=== PATIENT | male | born 2005 | race Two or more races ===

== ENCOUNTER 2024-06-02 06:25 | Emergency (ER) | payer MEDICAID, SELFPAY ==
[2024-06-02 06:25] VITALS: BMI 17.8
[2024-06-02 06:32] VITALS: BP 113/74; PULSE 64; RESP 17; TEMP 36.6; O2SAT 98
--- NOTE | 2024-06-02 06:33 | XR_ITS ---
Examination: Shoulder,right, 3 views Technique: Shoulder AP internal rotation, AP external rotation, Y view shoulder, 3 views Exam date and time :0647 hrs. Indications: Onset right shoulder pain today Findings: Normal bone mineralization. No shoulder fracture or dislocation No calcific tendinitis Impression: Negative for osseous abnormality
--- NOTE | 2024-06-02 06:33 | XR_ITS ---
Examination: Ribs, right, with PA chest, 5 views Technique: Chest PA, RIBS AP, RPO, LPO, AP coned lower ribs 5 views Exam date and time: June 02, 2024 0652 hrs. Indications: Onset right rib pain today Findings: Normal heart size No pneumothorax Normal bone density Right and left ribs appear intact Impression: No pneumothorax pulmonary contusion or hemothorax Ribs appear intact
--- NOTE | 2024-06-02 08:05 | EDNOTE_ITS ---
ED General RME/HPI General Chief complaint: General Adult/Misc Complain Stated complaint: CHEST/ABD/SHOULDER PAIN X 1 DAY Time Seen by Provider: 06/02/24 06:28 Arrival date/time: 06/02/24 06:25 19-year-old male with no significant medical problems presents emergency department today complaints of right-sided rib pain and right-sided shoulder pain patient reports no abdominal pain nausea or vomiting patient reports no left-sided chest pain or shortness of breath Limitations: no limitations Related Data Previous Rx's ?Medication ?Instructions ?Recorded guaifenesin 100 mg/5 mL oral liquid 100 mg (5 mL) PO [id number] PRN cold 04/22/18 symptoms #118 mL ibuprofen 100 mg/5 mL oral 200 mg (10 mL) PO QID PRN pain 04/22/18 suspension #250 mL loratadine 5 mg/5 mL oral solution 5 mg (5 mL) PO QDAY #120 mL 04/22/18 cyclobenzaprine 10 mg tablet 10 mg PO TID PRN muscle spasm 10 06/02/24 days #30 tab-caps ibuprofen 600 mg tablet 600 mg PO Q6H #30 tabs 06/02/24 Allergies Allergy/AdvReac Type Severity Reaction Status Date / Time No Known Allergies Allergy Verified 06/02/24 06:27 Review of Systems Review of Systems Systems Reviewed: All systems reviewed, normal except as documented Constitutional Constitutional: Reports system reviewed and no additional complaints, except as documented, Denies fever(s) and Denies headache(s) Eyes Eyes: Reports system reviewed and no additional complaints, except as documented and Denies blurry vision ENT Ears, Nose, Mouth, and Throat: Reports system reviewed and no additional complaints, except as documented, Denies headache(s), Denies nasal congestion, Denies nasal discharge and Denies neck pain Cardiovascular Cardiovascular: Reports system reviewed and no additional complaints, except as documented, Denies chest pain, Denies dyspnea and Reports other (Rib pain) Respiratory Respiratory: Reports system reviewed and no additional complaints, except as documented, Denies chest congestion, Denies cough and Denies dyspnea Gastrointestinal Gastrointestinal: Reports system reviewed and no additional complaints, except as documented and Denies abdominal pain Musculoskeletal Musculoskeletal: Reports system reviewed and no additional complaints, except as documented, Reports arthralgias, Denies joint swelling and Denies neck pain Integumentary/Breasts Skin/Breast: Reports system reviewed and no additional complaints, except as documented and Denies rash Neurologic Neurologic: Reports system reviewed and no additional complaints, except as documented, Reports as per HPI and Denies headache(s) Past Medical History Past Medical History NEUROLOGIC: Negative Neurological Disorders CARDIAC: Negative Cardiac Disorders ED Exam General Limitations: Present no limitations General appearance: Present alert and in no apparent distress Head Head exam: Present atraumatic, normocephalic and normal inspection Eye Eye exam: Present normal appearance, PERRL and EOMI; Absent conjunctival injection ENT ENT exam: Present normal exam, normal oropharynx and mucous membranes moist Neck Neck exam: Present normal inspection, full ROM and trachea midline Chest Chest inspection: Present normal inspection and symmetric chest wall rise Respiratory Respiratory exam: Present normal lung sounds bilaterally; Absent respiratory distress Cardiovascular Cardiovascular exam: Present regular rate, normal rhythm and normal heart sounds Abdominal Exam Abdominal exam: Present soft and normal bowel sounds; Absent distention, tenderness, guarding, rebound or rigidity Extremities Exam Extremities exam: Present normal inspection and full ROM Back Exam Back exam: Present normal inspection and full ROM Neurological Exam Neurological exam: Present alert, oriented X3 and CN II-XII intact Psychiatric Psychiatric exam: Present normal affect and normal mood Skin Skin exam: Present warm, dry, intact and normal color Course Quality Measures none Orders Category Date Time Status XR ribs RT min 3V w [id number] Stat Exams 06/02/24 06:33 Completed XR shoulder RT min 2V Stat Exams 06/02/24 06:33 Completed Vital Signs Vital signs: Vital Signs Temperature 97.9 F 06/02/24 06:32 Pulse Rate 64 06/02/24 06:32 Respiratory Rate 17 06/02/24 06:32 Blood Pressure 113/74 06/02/24 06:32 Pulse Oximetry (%) 98 06/02/24 06:32 Oxygen Delivery Method Room Air 06/02/24 06:32 O2 saturation 98% room air within normal limits MDM Patient data External records reviewed:: None Clinical information provided by:: patient Social determinants that could affect healthcare access:: none Patient has the following chronic illnesses:: None How is presenting disease/condition affected by chronic disease/condition?: no chronic disease Evaluation data The following diagnostics were reviewed and interpreted by me:: radiology exam(s) Lab and/or radiology exams considered but not ordered:: Radiology obtain Interpretation Summary: Reviewed by me Medications Medications considered but not ordered:: Given Medication administrations:: Given Consultations Consultation(s) initiated? (list below): No Diagnosis Differential Diagnosis ED Complaint MDM: Rib pain, rib fracture, rib contusion, shoulder pain, shoulder strain Most likely diagnosis given after review of the tests above:: Rib pain Admission Indicated Admission indicated?: not indicated Explain why admission is indicated or not indicated:: Rib pain Admission Request Was there a request for admission?: No Disposition Plan Disposition Plan: Discharge Discharge Attestation Discharge Attestation: The patient and all family members were given an opportunity to ask questions and understood the discharge instructions. Discharge instructions specifically effects, indications for sooner follow up or return to the emergency department, and the expected course of current diagnosis. Patient condition: Stable Medical Decision Making MDM Narrative MDM Narrative: 19-year-old male with no significant medical problems presents emergency department today complaints of right-sided rib pain and right-sided shoulder pain patient reports no abdominal pain nausea or vomiting patient reports no left-sided chest pain or shortness of breath On exam patient well-appearing patient does not appear ill or toxic patient does not appear in acute distress Imaging obtained no acute emergent findings noted Patient discharged home in no distress to follow-up with primary care doctor in the next 24 to 48 hours and for any worsening symptoms to return to the ER immediately Differential Diagnosis Differential Diagnosis: Rib pain, rib fracture, rib contusion, shoulder pain, shoulder strain Medical Records Medical records reviewed: Yes I reviewed the patient's medical records. Radiology Data Radiology results reviewed: Yes I reviewed the patient's radiology results. Discharge Plan Plan Patient Disposition: HOME (Self Care) Disposition Comment: Stable Prescriptions/Referrals Prescriptions/Med Rec: New cyclobenzaprine 10 mg tablet 10 mg PO TID PRN (Reason: muscle spasm) 10 Days Qty: 30 0RF ibuprofen 600 mg tablet 600 mg PO Q6H Qty: 30 0RF No Action loratadine 5 mg/5 mL solution 5 mg PO QDAY Qty: 120 0RF guaifenesin 100 mg/5 mL liquid 100 mg PO [id number] PRN (Reason: cold symptoms) Qty: 118 0RF ibuprofen 100 mg/5 mL suspension 200 mg PO QID PRN (Reason: pain) Qty: 250 0RF Referrals: Eh Mckinley MD [Primary Care Provider] - 06/03/24 Problem List Clinical Impression: Rib pain on right side, Pain in right shoulder Patient/Caregiver Discharge Instructions Education Materials: RICE Additional Instructions: Please follow up with your primary care doctor in the next 24-48hrs for any worsening symptoms return here immediately Print Language: Congolese Stand Alone Forms: Lola Award Info., Work/School Release, Patient Portal Info Letter PA/DROP HAMMER OPERATOR HELPER Supervising Physician PA/DROP HAMMER OPERATOR HELPER Supervising Physician: Dr [email or web address]
== END 2024-06-02 08:12 | disposition home or self-care (01) ==
PROVIDERS: Emergency Provider Emergency Medicine; PCP Family Medicine
DX: R07.81 Pleurodynia (principal); M25.511 Pain in right shoulder
CPT/HCPCS: 71101; 73030; 99283